=== PATIENT | female | born 1970 | race Caucasian/White ===

== ENCOUNTER 2019-10-14 02:21 | Outpatient (CLI) | payer BC, SELFPAY ==
--- NOTE | 2019-10-14 08:30 | DI.MAMMO_ITS ---
EXAM: MG MAMMO SCREENING CLINICAL HISTORY: screening TECHNIQUE: Bilateral full field digital CC and MLO mammographic images were obtained with 3D tomosyn thesis and utilizing computer aided detection (CAD). COMPARISON: Available for comparison. FINDINGS: Masses/Architectural Distortion: None seen. Microcalcifications: No suspicious pleomorphic-type are seen. Skin Thickening/Nipple Retraction: None. IMPRESSION: 1. No significant interval change with no specific features of malignancy noted. 2. Unless there is more urgent need, screening mammography is recommended, as per [employer] guidelines. ACR BI-RAD Category- 1 Negative Breast Density - Category B - Scattered areas of fibroglandular density A negative radiographic report should not delay biopsy if a dominant or clinically suspicious mass is present. Up to ten percent of cancers are not identified on mammography. A negative report may reinforce clinical impression. Adenosis and dense breasts may obscure an underlying neoplasm. False positive reports average 6 to 10%. Patient will receive a letter notifying them of these results.
== END 2019-10-14 02:41 ==
PROVIDERS: PCP Emergency Medicine; Visit Provider Nurse Practitioner Family
DX: Z12.31 Encounter for screening mammogram for malignant neoplasm of breast (principal)
CPT/HCPCS: 77063; 77067

== ENCOUNTER 2020-09-26 11:26 | Outpatient (REF) | payer BC, SELFPAY ==
--- NOTE | 2020-09-26 11:00 | PAPFT_PTH ---
PATIENT: Regina Hearn LOC: GIN U#:[id number] AGE/SX: 49/F ROOM: RE09/26/[address]: DARIAN Oliveira : 1970 BED: DIS: 09/26/2020 SPEC #: [id number] RECD: 09/26/20 12:46 STATUS: AGUSTINA REQ #: [id number] EDNA: 09/26/20 11:[address]: Chapis Borges DEPT: [facility] Cytology RECD BY: Damari Araujo ENTERED: 09/26/20 12:47 SP TYPE: PAPFT OTHR DR: Yousif Kidd, Tissues: 1 - CX/ENDOCX FOR PAP SMEARS Procedures: PAP THIN PREP/[facility] Screening HPV DNA PROBE Comments: [id number] ([place])
== END 2020-09-26 11:46 ==
LOC: LBN 11:26
PROVIDERS: PCP Emergency Medicine; Visit Provider Nurse Practitioner Family
DX: Z12.4 Encounter for screening for malignant neoplasm of cervix (principal)
CPT/HCPCS: 88142; 87624

== ENCOUNTER 2021-07-06 04:04 | Outpatient (CLI) | payer BC, SELFPAY ==
--- NOTE | 2021-07-06 08:30 | DI.RAD_ITS ---
Exam(s) XR KNEE RT 3V AP,LAT,INES EXAM: XR KNEE RT 3V AP,LAT,INES CLINICAL HISTORY: One year continuous pain, worsening/swelling,m25.561. TECHNIQUE: 2D digital imaging was performed. COMPARISON: No exams were available for comparison FINDINGS: BONES: No acute fracture is present. No bony destructive lesion is seen. JOINTS: The knee is normally aligned. No joint effusion is seen. There is mild periarticular spurring involving all 3 joint compartments. SOFT TISSUE: Normal. IMPRESSION: Mild degenerative changes of the right knee. DATA REPOSITORY: RADIATION DOSE DELIVERED:
== END 2021-07-06 04:24 ==
PROVIDERS: PCP Emergency Medicine; Visit Provider Nurse Practitioner Family
DX: M17.11 Unilateral primary osteoarthritis, right knee (principal)
CPT/HCPCS: 73562

== ENCOUNTER 2021-12-19 00:33 | Outpatient (CLI) | payer BC, SELFPAY ==
--- NOTE | 2021-12-19 08:21 | DI.MAMMO_ITS ---
Exam(s) MAMMO SCREENING EXAM: MAMMO SCREENING CLINICAL HISTORY: screening. TECHNIQUE: Bilateral full field digital CC and MLO mammographic images were obtained with 3D tomosyn thesis and utilizing computer aided detection (CAD). COMPARISON: Prior mammograms were reviewed, the most recent being September 2019. FINDINGS: No CAD designations. There are no new spiculated masses nor malignant appearing microcalcification groups. There is no significant architectural distortion nor skin thickening-retraction. IMPRESSION: No radiographic evidence of malignancy. BI-RADS Category 1 - Negative Breast Density - Category B - Scattered areas of fibroglandular density Breast density Category C or D implies that the patient has dense breast tissue. Dense breast tissue can make it harder to find cancer on a mammogram. Dense breast tissue is also associated with an incr eased risk of breast cancer. This information about the result of the mammogram report was provided to the patient to raise their awareness. Use this report when you speak with the patient about their risks for breast cancer, which includes their family history. At that time, you may recommend additional screening tests (Ultrasoun d or MRI) as these tests may add significant information. A negative radiographic report should not delay biopsy if a dominant or clinically suspicious mass is present. Up to ten percent of cancers are not identified on mammography. A negative report may reinforce clinical impression. Adenosis and dense breasts may obscure an underlying neoplasm. False positive reports average 6 to 10%. Patient will receive a letter notifying them of these results.
== END 2021-12-19 00:53 ==
PROVIDERS: PCP Family Medicine; Visit Provider Nurse Practitioner Family
DX: Z12.31 Encounter for screening mammogram for malignant neoplasm of breast (principal)
CPT/HCPCS: 77063; 77067

== ENCOUNTER → 2022-03-14 17:12 | Outpatient (CLI) | payer BC, SELFPAY ==
--- NOTE | 2022-03-14 14:00 | DI.RAD_ITS ---
Exam(s) XR KNEE RT 3V AP,LAT,INES EXAM: XR KNEE RT 3V AP,LAT,INES CLINICAL HISTORY: right knee pain - M25.569. TECHNIQUE: 2D digital imaging was performed. COMPARISON: CR XR KNEE RT 3V AP,LAT,INES from 07/06/2021 FINDINGS: 3 views There is no evidence of fracture or obvious joint effusion. Minimal degenerative changes. No osseou s lesions. Bone density. IMPRESSION: Minimal degenerative changes. No joint effusion. No fractures evident. DATA REPOSITORY: RADIATION DOSE DELIVERED:
== END ==
PROVIDERS: PCP Nurse Practitioner; Visit Provider Emergency Medicine
DX: M25.561 Pain in right knee (principal)
CPT/HCPCS: 73562

== ENCOUNTER → 2022-04-18 02:15 | Outpatient (CLI) | payer BC, SELFPAY ==
--- NOTE | 2022-04-18 07:57 | DI.MRI_ITS ---
Exam(s) MR LOWER JOINT RT WO EXAM: MR LOWER JOINT RT WO CLINICAL HISTORY: RIGHT KNEE PAIN, INTERNAL DERANGEMENT, M23.91, M25.561. TECHNIQUE: Multiplanar multisequence MRI was performed. COMPARISON: CR XR KNEE RT 3V AP,LAT,INES from 03/14/2022 FINDINGS: BONES: There is no fracture or contusion pattern. JOINTS: Articular cartilage is unremarkable. There is a small joint effusion. TENDONS: Extensor mechanism: Unremarkable. Medial retinaculum: Unremarkable. Lateral retinaculum: Unremarkable. Popliteus: Unremarkable. MUSCLES: Unremarkable. MENISCI: There is a tear of the body and posterior horn of the medial meniscus. There is a small para meniscal cyst. The lateral meniscus is unremarkable. SOFT TISSUES: There is mild edema seen in the prepatellar soft tissues. No focal fluid collection is seen. LIGAMENTS: Anterior Cruciate: Unremarkable. Posterior Cruciate: Unremarkable. Medial Collateral:There is fluid around the medial collateral ligament suggestive of a sprain. Lateral Collateral: Unremarkable. OTHER: IMPRESSION: 1. Tear of the body and posterior horn of the medial meniscus with an associated parameniscal cyst. 2. Findings suggestive of a medial collateral ligament sprain. 3. Small joint effusion. DATA REPOSITORY:
== END ==
PROVIDERS: PCP Nurse Practitioner; Visit Provider Student in an Organized Health Care Education/Training Program
DX: M25.561 Pain in right knee (principal); M23.8X1 Other internal derangements of right knee; M25.461 Effusion, right knee; S83.241A Other tear of medial meniscus, current injury, right knee, initial encounter; S83.411A Sprain of medial collateral ligament of right knee, initial encounter
CPT/HCPCS: 73721

== ENCOUNTER 2022-05-01 03:25 | Outpatient (CLI) | payer BC, SELFPAY ==
[2022-05-01 12:07] LABS: Source Nasal/Nares
[2022-05-01 16:06] LABS: COVID-19 PCR Negative (Negative)
== END 2022-05-01 03:26 | disposition home or self-care (01) ==
LOC: LBO 03:25
PROVIDERS: PCP Nurse Practitioner; Visit Provider Student in an Organized Health Care Education/Training Program
DX: Z20.822 Contact with and (suspected) exposure to COVID-19 (principal); Z01.818 Encounter for other preprocedural examination
CPT/HCPCS: 87635

== ENCOUNTER 2022-05-03 08:55 | Day surgery (SDC) | payer BC, SELFPAY ==
[2022-05-03] VITALS (9 sets, daily range): BP systolic 86–122; BP diastolic 42–78; PULSE 51–67; RESP 12–18; TEMP 36.5–37.1; O2SAT 96–100; BMI 31.8
--- NOTE | 2022-05-03 08:21 | W.ANESPRE ---
General Info Date of Service Date Performed: 05/03/22 Height: 5 ft 7 in Weight: 92.079 kg Body Mass Index (BMI): 31.8 Surgical Procedure: Operation Date: 05/03/22 11:10 Proposed Procedure Side Surgeon p Knee Arthroscopy w/Any Indicated Meniscal, Chondral and Synovial Surgery Right Shahab Chavez MD Meds Allergies and Home Medications Allergies Allergy/AdvReac Type Severity Reaction Status Date / Time hydrocodone AdvReac Mild Nausea Verified 05/03/22 09:09 Home Medication Medication Instructions Recorded calcium carbonate 600 mg calcium 600 mg PO DAILY 07/07/14 (1,500 mg) tablet (Calcium) multivitamin (Daily Multi-Vitamin 1 ea PO DAILY 07/07/14 tablet) omega-3 fatty acids-fish oil 300 1 ea PO DAILY 07/07/14 mg-1,000 mg capsule (Fish Oil) Current Visit Medications: Current Medications Generic Name Dose Route Start Last Admin Trade Name Freq PRN Reason Stop Dose Admin Ringer's Solution 1,000 mls @ 80 mls/hr 05/03/22 06:00 IV 06/01/22 23:59 INFUSION PAULA Cefazolin Sodium/Dextrose 2 gm in 50 mls @ 100 mls/hr 05/03/22 06:00 Ancef Duplex IVPB 05/03/22 18:00 PREOP PAULA IV Miscellaneous Supplies 1 each 05/03/22 06:00 Iv Access IV 06/01/22 23:59 DIRECTED PAULA Naproxen 250 - 500 mg 05/03/22 07:22 Naproxen 500 Mg Tab PO BID PRN PRN Oxycodone HCl 5 - 10 mg 05/03/22 07:22 Oxycodone 5 Mg Tab PO Q4H PRN PRN Sodium Chloride 0 ml 05/03/22 06:00 Normal Saline Flush 10 Ml Syr IV 06/01/22 23:59 PRN PRN Sodium Chloride 0 ml 05/03/22 06:00 Normal Saline 10 Ml Vial IJ 06/01/22 23:59 DIRECTED PRN Sterile Water 0 ml 05/03/22 06:00 Water,Injection,Sterile 10 Ml Vial IJ 06/01/22 23:59 DIRECTED PRN PFSH Active Problems Active Problems: Problem Status Onset Code Tear of medial meniscus of right knee S83.241A Surgical History Surgical History section X 2 Endometrial Ablation (~2007) Ligation of fallopian tube Open Carpal Tunnel release R Tobacco Smoking/Tobacco Use Status: Never Alcohol Alcohol Intake: current Alcohol intake frequency: a few times a week Substance Use Substance use: Never Substance use type: does not use Prental History History 2 Para Hx # Term Pregnancies 2 Multiple births Hx # Pregnancies Ectopic pregnancies AB induced Hx Number of Living Children AB spontaneous Vital Signs and Lab Results Vital Signs Most Recent Vital Signs in EMR: Temp Pulse Resp BP Pulse Ox 37.1 C 67 18 122/78 98 05/03/22 09:11 05/03/22 09:11 05/03/22 09:11 05/03/22 09:11 05/03/22 09:11 Lab Results Blood Type / Crossmatch: No Data to Display Complete Blood Count: No Data to Display Complete Metabolic Panel: No Data to Display Liver Function Panel: No Data to Display Coagulation Panel: No Data to Display Cardiac Panel: No Data to Display Arterial Blood Gas: No Data to Display Venous Blood Gas: No Data to Display Pancreas Panel: No Data to Display Thyroid Panel: No Data to Display Infectious Disease: Coronavirus (COVID-19)(PCR) Negative (Negative) 05/01/22 09:05 Coronavirus 2019 Source Nasal/Nares 05/01/22 09:05 Blood Cultures: No Data to Display Toxicology Panel: No Data to Display Panel: No Data to Display Anesthesia Assessment and Plan Anesthesia History Personal History: No History of Anesthesia Complications Family History: No Family History of Anesthesia Complications Exercise Tolerance Exercise Tolerance: Metabolic Equivalents>4 Pertinent Negatives Pertinent Negatives: No Symptoms of GERD Cardiac & Pulmonary Exam Cardiac Exam: Normal S1/S2 Heart Sounds Pulmonary Exam: Clear Bilateral Breath Sounds Implantable Cardiac Device Does patient have a Pacemaker or an ICD?: No Airway Exam Known Difficult Airway: No Mallampati Class: 2 Mouth Opening: Normal (> 3cm) Thyromental Distance: Greater than 3 cm Neck Range of Motion: Full ROM Neck Circumference: Normal Teeth Condition: Normal Dentition ASA Classification ASA Score: ASA 2 Emergency Case?: No NPO Status NPO Status: NPO Clears >2 hours, Solids >8 hours Status Status: Not Relevant due to Medical History Anesthesia Plan Resuscitation Status: Full Code Anesthesia Technique: General Anesthesia Airway Planned: LMA Monitors Used: Standard Monitors Preoperative Comments:: 51 yo female for right knee scope. Sig PMHx: chronic neck/shoulder pain, never smoker/EtOH. Previous Anes: no airway history
[2022-05-03] MEDS: Lactated Ringers 1,000 ML 80 ML IV (09:34)
[2022-05-03] MEDS: ceFAZolin 2 GM/50 ML BAG IVPB (11:17)
[2022-05-03] MEDS: MORPHine 4 MG/ML SYR (12:00)
[2022-05-03] MEDS: EPINEPHrine 30 MG/30 ML VIAL (12:00)
[2022-05-03] MEDS: Bupivacaine 0.5% Pres-Free W/EPI 10 ML VIAL (12:18)
--- NOTE | 2022-05-03 12:31 | W.PM.DSUDISC ---
Discharge Plan Disposition Patient Disposition: HOME Condition: Stable Discharge Details Reason For Visit: Right knee surgery Attending Provider: hSahab Chavez Primary Care Provider: Erika Flannery Home Meds and New Rx's Prescriptions: New aspirin 81 mg tablet,delayed release (DR/EC) 81 mg PO DAILY 14 Days Qty: 14 0RF naproxen 250 mg tablet 250 - 500 mg PO BID PRNQty: 40 0RF Rx Instructions: take with a meal tramadol 50 mg tablet 50 mg PO Q8H PRN (Reason: severe pain) Qty: 9 0RF Continued multivitamin [Daily Multi-Vitamin] 1 EACH tablet 1 ea PO DAILY calcium carbonate [Calcium 600] 600 MG tablet 600 mg PO DAILY omega-3 fatty acids-fish oil [Fish Oil] 1 EACH capsule 1 ea PO DAILY Discontinued ibuprofen 800 MG tablet 800 mg PO PRN PRN Discharge Instructions Additional Instructions: Surgery: Right knee arthroscopy with partial medial meniscectomy and synovectomy Activity: Weightbearing as tolerated. Advance range of motion as comfort allows. No knee brace or crutches needed. Recommend avoiding sports, pivoting, and squatting for about 6 weeks. A physical therapy prescription will be sent electronically to start in 2 to 3 weeks. Prescriptions: Aspirin 81 mg take 1 daily to prevent a blood clot for 14 days Naproxen 250 mg take 1-2 every 12 hours with a meal as needed for moderate pain Tramadol 50 mg take 1 every 6 hours as needed for severe pain You may use [id number] Tylenol (acetaminophen) as needed for mild pain. These pain medications may be taken all at once or in different combinations as needed. Also, recommend Colace (docusate) as a stool softener as surgery and pain medicine cause constipation. You may try [id number] diphenhydramine (Benadryl) 25-50 mg nightly as a sleep aid Dressings: Leave dressing in place for 3 days. May then remove and leave open to air or cover incisions with Band-Aids. May shower after 5 days. Follow-up: 10-[address] Chavez Let us know right away if you develop any redness, drainage, fevers, chest pain, or trouble breathing. Do not drink alcohol or drive for at least 24 hours after anesthesia. Please call the office during business hours with any questions or concerns. Discharge Orders Discharge Orders: Discharge Order (Routine); Ordered 05/03/22 Ordered By: Shahab Chavez DS: Diagnosis Discharge Diagnosis (1) Tear of medial meniscus of right knee: Status: Acute
--- NOTE | 2022-05-03 12:37 | ROE_ITS ---
Operative Note Operative Note DATE OF PROCEDURE: 05/03/22 PRE-OP DIAGNOSIS: Right knee 1. Medial meniscus tear POST-OP DIAGNOSIS: other Right knee 1. Medial meniscus tear 2. Synovitis PROCEDURE: Right knee 1. Partial medial meniscectomy, CPT #76661 2. Greater than 2 compartment synovectomy, CPT #55772: Anteromedial, anterolateral, and patellofemoral SURGEON: Shahab Chavez ELECTRICAL SIGN WIRER: None None ANESTHESIA TYPE: Local By Surgeon and General LMA/ETT Refer to Anesthesia Record ESTIMATED BLOOD LOSS: 5 PATHOLOGY: none sent TOURNIQUET TIME: 0 Patient was transported to: PACU Patient's condition: stable Indications: Please see complete medical record for details. Findings: Exam under anesthesia: Full range of motion, no instability Arthroscopic findings: Moderate patellofemoral, anteromedial, anterolateral synovitis. Large posterior horn degenerative type medial meniscus tear with slight extension horizontally into the meniscal root and meniscal body. Stable root attachment. Stable superior and inferior leaflets although significantly divided in the posterior horn through the red?white zone. Intact ACL. Intact lateral meniscus. Largely intact articular cartilage. Procedure Description: In the operating room, genral anesthesia was induced. The patient was positioned supine on the operating room table. All bony prominences were well- padded. Preoperative antibiotics were administered. The knee was prepped and draped in the usual sterile fashion. The correct patient, procedure, and side of the procedure were all verified prior to incision. Exam under anesthesia was performed. 10 cc of 0.5% bupivacaine containing epine phrine was infiltrated about the planned anteromedial and anterolateral knee arthroscopy portals. The portals were established and a complete diagnostic arthroscopy was performed with relevant findings detailed above. The mechanical shaver was used to remove abundant inflamed synovium from the anteromedial, anterolateral, and patellofemoral compartments. The lateral meniscal root had slight fraying which was lightly debrided with mechanical shaver as well. Using a combination of hand instruments including meniscal biters and a power shaver and working through the anteromedial and anterolateral compartments the medial meniscus was debrided of all torn tissue to a stable margin. Care was taken to preserve as much meniscus tissue was possible without leaving too much superior and inferior leaflets. The meniscal remnant was probed and found to have a stable margin, stable root, and no other tears. Under direct arthroscopic visualization an 18-gauge needle was passed into the knee from superolateral into the suprapatellar pouch. The knee was copiously irrigated with arthroscopic fluid until there was a clear effluent before being drained of all fluid. The anteromedial and anterolateral portals were closed in 3-0 Monocryl in a buried interrupted fashion. 20 cc of 0.5% bupivacaine with epinephrine containing 4 mg of morphine was infiltrated into the knee through t he previously placed needle. Mastisol, Steri-Strips, and 4 x 4 gauze were applied over the incisions followed by sterile soft roll. The knee was then wrapped gently with an RASHARD comressive bandage. The patient awoke from anesthesia without complication and was transferred to the recovery room in a stable condition.
[2022-05-03] MEDS: HYDROmorphone 2 MG/ML VIAL IVP ×2 (12:40→13:10)
[2022-05-03] MEDS: Normal Saline 10 ML VIAL IJ (12:45)
--- NOTE | 2022-05-03 12:56 | W.ANESPOSTOP ---
Postoperative Evaluation Date, Time and Location Date Performed: 05/03/22 Time Performed: 12:56 Patient Location: PACU Vital Signs Most Recent Imported Vital Signs: Most Recent Vital Signs Temp Pulse Resp BP Pulse Ox 36.5 C 52 L 12 100/58 L 96 05/03/22 12:45 05/03/22 12:45 05/03/22 12:45 05/03/22 12:45 05/03/22 12:45 Pain Score Most Recent Pain Score: Most Recent Pain Score Pain Level 8 05/03/22 12:45 Assessment Mental Status: Awake (Alert & Oriented to Patient Baseline) Airway and Respiratory Function: Patent airway with normal (patient baseline) respiratory exam Cardiovascular Function: Hemodynamically Stable Hydration Status: Adequately Hydrated Nausea & Vomiting: No Nausea or Vomiting Pain: Pain is Moderate or Severe Postoperative Pain Management: Pain being addressed with medication Peripheral Nerve Block: Patient did not receive a nerve block
== END 2022-05-03 14:25 | disposition home or self-care (01) ==
PROVIDERS: PCP Nurse Practitioner; Visit Provider Student in an Organized Health Care Education/Training Program
PROC: (CPT 29870; principal; 2022-05-03 11:00)
DX: S83.241A Other tear of medial meniscus, current injury, right knee, initial encounter (principal); M65.861 Other synovitis and tenosynovitis, right lower leg; X58.XXXA Exposure to other specified factors, initial encounter
CPT/HCPCS: 29876; 29881; J0131; J0690; J1100; J1885; J2270; J2405; J2704

== ENCOUNTER 2023-06-07 07:59 | Emergency (ER) | payer BC, SELFPAY ==
[2023-06-07 08:02] VITALS: BP 140/80; PULSE 70; RESP 16; TEMP 36.4; O2SAT 97
--- NOTE | 2023-06-07 08:30 | ED.GENADUL_ITS ---
Discharge Plan Discharge Details Chief Complaint: Vascular Primary Care Provider: Teena Flores ED Provider: Damian Srivastava Home Meds and New Rx's Prescriptions: No Action bisacodyl [Dulcolax (bisacodyl)] 5 mg tablet,delayed release (DR/EC) 5 mg PO ONCE Qty: 4 0RF Rx Instructions: Take per colonoscopy instructions provided by ordering providers office polyethylene glycol 3350 17 gram/dose powder 17 g PO ONCE Qty: 238 0RF Rx Instructions: Take per colonoscopy instructions provided by ordering providers office multivitamin [Daily Multi-Vitamin] 1 EACH tablet 1 ea PO DAILY calcium carbonate [Calcium 600] 600 MG tablet 600 mg PO DAILY omega-3 fatty acids-fish oil [Fish Oil] 1 EACH capsule 1 ea PO DAILY naproxen 250 mg tablet 250 - 500 mg PO BID PRNQty: 40 0RF Rx Instructions: take with a meal Medical Decision Making 52-year-old lady with known varicose veins bilateral lower extremities. Some of the varicose veins are very superficial on bilateral ankles. She bled from 1 on the right ankle this morning bleeding resolved with pressure. I have recommended that she follow-up with a varicose vein specialist to see if they can offer treatment to avoid this from happening again. HPI General Date/Time Provider Initiated Documentation: 06/07/23 08:10 . HPI Narrative: 52-year-old woman presents to the emergency room for evaluation of laying back of laying on the right ankle. She states she was in the shower and unfortunately nicked her varicose vein and it started bleeding. After some time she put pressure on the vein that was bleeding and called her who put a dressing on. They arrived to the emergency department with an intact dressing. Not on blood thinners. No dizziness. No lightheadedness. Related Data Home Medications Medication Instructions Recorded Confirmed calcium carbonate 600 mg calcium 600 mg PO DAILY 07/07/14 06/07/23 (1,500 mg) tablet (Calcium) multivitamin (Daily Multi-Vitamin 1 ea PO DAILY 07/07/14 06/07/23 tablet) omega-3 fatty acids-fish oil 300 1 ea PO DAILY 07/07/14 06/07/23 mg-1,000 mg capsule (Fish Oil) naproxen 250 mg tablet 250 - 500 mg PO BID PRN #40 tabs 05/03/22 06/07/23 bisacodyl 5 mg tablet,delayed 5 mg PO ONCE #4 tabs 05/29/23 06/07/23 release (Dulcolax (bisacodyl)) polyethylene glycol 3350 17 17 g PO ONCE #238 grams 05/29/23 06/07/23 gram/dose oral powder Previous Rx's Medication Instructions Recorded naproxen 250 mg tablet 250 - 500 mg PO BID PRN #40 tabs 05/03/22 bisacodyl 5 mg tablet,delayed 5 mg PO ONCE #4 tabs 05/29/23 release (Dulcolax (bisacodyl)) polyethylene glycol 3350 17 17 g PO ONCE #238 grams 05/29/23 gram/dose oral powder Allergies Allergy/AdvReac Type Severity Reaction Status Date / Time hydrocodone AdvReac Mild Nausea Verified 06/07/23 08:07 General Stated Complaint: Vascular LUIS: 3 Review of Systems Narrative: 10 point review of system is negative unless otherwise specified in the HPI [facility] Medical History Perimenopausal atrophic vaginitis WALKER (stress urinary incontinence, female) Surgical History section X 2 Endometrial Ablation (~2007) Ligation of fallopian tube Open Carpal Tunnel release R Tear of medial meniscus of right knee S/P a knee arthroscopy with partial medial meniscectomy: 05/03/2022 Family History Mother No problems noted. Father Diabetes Grandmother No problems noted. Maternal Aunt Breast cancer maternal Social History Smoking/Tobacco Use Status: Never Smoking risk assessment performed?: Yes Alcohol Intake: current Alcohol Intake frequency: a few times a week Alcohol type: hard liquor Drug use: Never Substance use type: does not use Housing: house Current gender identity: female Do you feel safe at home: Yes Do you feel safe in your relationship?: Yes Female Reproductive History Menstrual control method: permanent sterilization Menopause type: natural History History 2 Para Hx # Term Pregnancies 2 Multiple births Hx # Pregnancies Ectopic pregnancies AB induced Hx Number of Living Children AB spontaneous Exam Narrative Exam Narrative: General: A,A Ox3, Calm, no apparent distress, well developed, pleasant and cooperative Head Size/Shape: normocephalic, atraumatic Eyes Pupils: PERRLA Extraocular Mobility: intact and symmetrical Conjunctiva: non-injected, anicteric, no discharge Ears, Nose, Throat Nares: patent bilaterally Oral Cavity: moist Respiratory Respiratory Effort: no dyspnea Cardiovascular Normal cap refill Pulse Quality: +2 equal bilaterally, location(s) pedal Musculoskeletal System Joints, Bones, and Muscles: no deformities Extremities: warm and well-perfused, no cyanosis, capillary refill <2 seconds Skin Skin Inspection: Right ankle medial aspect clotted varicose vein Neurological Motor: normal tone, normal strength, moving all extremities equally Psychiatric: good insight, good judgement, normal mood and affect Course Vital Signs Vital signs: Vital Signs Temperature 36.4 C L 06/07/23 08:02 Pulse 70 06/07/23 08:02 Respiratory Rate 16 06/07/23 08:02 Blood Pressure 140/80 06/07/23 08:02 Pulse Oximetry 97 06/07/23 08:02 Temperature 36.4 C L 06/07/23 08:02 Temperature Source Tympanic 06/07/23 08:02 Pulse 70 06/07/23 08:02 Respiratory Rate 16 06/07/23 08:02 Respiratory Effort Normal, Non-Labored 06/07/23 08:08 Blood Pressure 140/80 06/07/23 08:02 Blood Pressure Position Sitting 06/07/23 08:02 Pulse Oximetry 97 06/07/23 08:02 Oxygen Delivery Method Room Air 06/07/23 08:02 Oxygen Flow Rate 0 06/07/23 08:02 Pain Level 0 06/07/23 08:02 PAWSS Have you Been Recently Intoxicated or Drunk Within the Last 30 days?: No Have you Ever Experienced Previous Episodes of Alcohol Withdrawal?: No Have you ever Experienced Withdrawal Seizures?: No Have you ever Experienced Delirium Tremens(DT)s?: No Have you ever undergone Alcohol Rehabilitation Treatment (i.e, inpt ot outpatient treatment programs)?: No Have you ever Experienced Blackouts?: No Have you ever Combined Alcohol with other Downers within the last 90 days?: No Have you ever Combined Alcohol with any other Substance of Abuse during the last 90 days?: No Positive Blood Alcohol level on Presentation? [PCS.BAL]: No Evidence of Increased Autonomic Activity (i.e. HR>120, tremor, sweating, agitation, nausea)?: No Result: 0
== END 2023-06-07 08:45 | disposition home or self-care (01) ==
PROVIDERS: Emergency Provider Emergency Medicine; PCP Nurse Practitioner Family
DX: I83.93 Asymptomatic varicose veins of bilateral lower extremities (principal)
CPT/HCPCS: 99281; 99282

== ENCOUNTER 2023-06-09 10:38 | Day surgery (SDC) | payer BC, SELFPAY ==
--- NOTE | 2023-06-08 14:21 | W.PM.DSUDISC ---
Date of service: 06/09/23 Time of Service: 12:28 Discharge Plan Disposition Patient Disposition: Home Condition: Good Discharge Details Reason For Visit: Colonoscopy Attending Provider: Sammy Ceron Primary Care Provider: Teena Flores Home Meds and New Rx's Prescriptions: Continued multivitamin [Daily Multi-Vitamin] 1 EACH tablet 1 ea PO DAILY calcium carbonate [Calcium 600] 600 MG tablet 600 mg PO DAILY omega-3 fatty acids-fish oil [Fish Oil] 1 EACH capsule 1 ea PO DAILY naproxen 250 mg tablet 250 - 500 mg PO BID PRNQty: 40 0RF Rx Instructions: take with a meal Discontinued bisacodyl [Dulcolax (bisacodyl)] 5 mg tablet,delayed release (DR/EC) 5 mg PO ONCE Qty: 4 0RF Rx Instructions: Take per colonoscopy instructions provided by ordering providers office polyethylene glycol 3350 17 gram/dose powder 17 g PO ONCE Qty: 238 0RF Rx Instructions: Take per colonoscopy instructions provided by ordering providers office Discharge Instructions Additional Instructions: Regina, we were able to complete your colonoscopy today without any difficulty. The quality of your prep was excellent. We had great visualization. I did not see any polyps or anything worrisome. I recommend that you consider another screening colonoscopy in 10 years 1. If tolerated, consume a soft, low fiber diet for 1-2 days. 2. Do not drive, drink alcohol, operate machinery, make critical decisions, or do activities that require coordination or balance for 24 hours. 3. Because air was put into your colon during the procedure, expelling air from your rectum (passing gas or farting) is normal. 4. You may not have a bowel movement for 1-3 days because of the colonoscopy prep. This is normal. 5. Go directly to the emergency room if you notice any of the following: Develop chills (warm to touch), or if you have a thermometer and your temperature is above 101 Difficulty breathing or difficultly swallowing Persistent vomiting Severe abdominal pain, other than gas cramps Severe chest pain Black, tarry stools Any bleeding ? exceeding one tablespoon 6. Call your physician if the site where your intravenous was started becomes red, swollen, painful, and warm to touch. 7. Your physician has reviewed your pre-procedure medications. Please continue to take those medications as previously ordered. You will be given specific information/education regarding any changes to your medications before leaving. Activity:: Activity as Tolerated Diet:: As Tolerated Discharge Orders Discharge Orders: Discharge Order (Routine); Ordered 06/08/23 Ordered By: Sammy Ceron DS: Diagnosis Discharge Diagnosis (1) Screen for colon cancer: Status: Acute Asessment and Plan: Negative screening colonoscopy
--- NOTE | 2023-06-08 14:23 | COLE_ITS ---
Date of service: 06/09/23 Time of Service: 12:30 Colonoscopy Report Date of procedure: 06/09/23 Pre-op diagnosis general: Screening colonoscopy Post-op diagnosis procedure note: other (Negative screening colonoscopy) Procedure: Colonoscopy Surgeon: Sammy Ceron Anesthesia Type: General:No Airway Estimated blood loss (mL): 0 Pathology: none sent Complications: None Disposition: same day Indications: Regina is a52 years old and she needs her next screening colonoscopy Prep: Miralax/Dulcolax Procedure Start Time: 12:04 Procedure End Time: 12:22 Retraction Time: 11 Findings: Negative screening colonoscopy Procedure Description: After the induction of monitored anesthetic care, and with the patient in left lateral decubitus position, I began by performing an external anorectal exam.? Perineum and skin were normal, as was the anal verge.? There was no evidence of external hemorrhoids.? Next, I performed a digital rectal exam.? I did not appreciate any abnormal findings.? Next, I advanced a colonoscope into the recta l vault.? I performed retroflexion.? This was normal.? Using insufflation, I then advanced the colonoscope beyond the rectal folds and into the sigmoid colon before advancing towards the cecum.? The quality of the prep was asked.? The scope was noted to be in the cecum by identification of the ileocecal valve and appendiceal orifice.? I then began withdrawing the colonoscope using repeated irrigation as necessary for full evaluation of the colonic mucosa. ?Once the scope was withdrawn to the level of the rectum, great care was taken to examine portions of the rectal folds. I did not see any signs of polyps or tumors anywhere along the large intestine. finally, the scope was withdrawn and the patient was brought to the same-day surgery recovery unit as the anesthetic wore off. ?The findings and instructions were shared with the patient prior to discharge.
[2023-06-09 10:59] VITALS: BP 134/79; PULSE 59; RESP 17; TEMP 36.8; O2SAT 98
[2023-06-09] MEDS: Lactated Ringers 1,000 ML 80 ML IV (11:23)
--- NOTE | 2023-06-09 11:36 | W.ANESPRE ---
General Info Date of Service Date Performed: 06/09/23 Height: 5 ft 7 in Weight: 91.9 kg Body Mass Index (BMI): 31.7 Surgical Procedure: Operation Date: 06/09/23 12:50 Proposed Procedure Side Surgeon p Shayy Ceron MD Meds Allergies and Home Medications Allergies Allergy/AdvReac Type Severity Reaction Status Date / Time hydrocodone AdvReac Mild Nausea Verified 06/09/23 11:11 Home Medication Medication Instructions Recorded calcium carbonate 600 mg calcium 600 mg PO DAILY 07/07/14 (1,500 mg) tablet (Calcium) multivitamin (Daily Multi-Vitamin 1 ea PO DAILY 07/07/14 tablet) omega-3 fatty acids-fish oil 300 1 ea PO DAILY 07/07/14 mg-1,000 mg capsule (Fish Oil) naproxen 250 mg tablet 250 - 500 mg PO BID PRN #40 tabs 05/03/22 Current Visit Medications: Current Medications Generic Name Dose Route Start Last Admin Trade Name Freq PRN Reason Stop Dose Admin Hyoscyamine Sulfate 0.125 mg 06/08/23 14:24 Hyoscyamine 0.125 Mg Sl/Oral/Chew SL 07/08/23 14:23 DIRECTED PRN Ringer's Solution 1,000 mls @ 80 mls/hr 06/09/23 06:00 06/09/23 11:23 IV 07/06/23 23:59 80 mls/hr INFUSION PAULA Administration IV Miscellaneous Supplies 1 each 06/09/23 06:00 Iv Access IV 07/06/23 23:59 DIRECTED PAULA Ondansetron HCl 4 mg 06/08/23 14:24 Ondansetron 4 Mg/2 Ml Vial IVP 07/08/23 14:23 Q4H PRN PRN Nausea / Vomiting Sodium Chloride 0 ml 06/09/23 06:00 Normal Saline Flush 10 Ml Syr IV 07/06/23 23:59 PRN PRN Sodium Chloride 0 ml 06/09/23 06:00 Normal Saline 10 Ml Vial IJ 07/06/23 23:59 DIRECTED PRN Sterile Water 0 ml 06/09/23 06:00 Water,Injection,Sterile 10 Ml Vial IJ 07/06/23 23:59 DIRECTED PRN PFSH Active Problems Active Problems: Problem Status Onset Code Screen for colon cancer Z12.11 Varicose vein of leg I83.90 Medical History Medical History Perimenopausal atrophic vaginitis WALKER (stress urinary incontinence, female) Surgical History Surgical History section X 2 Endometrial Ablation (~2007) Ligation of fallopian tube Open Carpal Tunnel release R Tear of medial meniscus of right knee S/P a knee arthroscopy with partial medial meniscectomy: 05/03/2022 Tobacco Smoking/Tobacco Use Status: Never Alcohol Alcohol Intake: current Alcohol intake frequency: a few times a week Alcohol type: hard liquor Substance Use Substance use: Never Substance use type: does not use Prental History History 2 Para Hx # Term Pregnancies 2 Multiple births Hx # Pregnancies Ectopic pregnancies AB induced Hx Number of Living Children AB spontaneous Vital Signs and Lab Results Vital Signs Most Recent Vital Signs in EMR: Most Recent Vital Signs Temp Pulse Resp BP Pulse Ox 36.8 C 59 L 17 134/79 98 06/09/23 10:59 06/09/23 10:59 06/09/23 10:59 06/09/23 10:59 06/09/23 10:59 Lab Results Blood Type / Crossmatch: No Data to Display Complete Blood Count: No Data to Display Complete Metabolic Panel: No Data to Display Liver Function Panel: No Data to Display Coagulation Panel: No Data to Display Cardiac Panel: No Data to Display Arterial Blood Gas: No Data to Display Venous Blood Gas: No Data to Display Pancreas Panel: No Data to Display Thyroid Panel: No Data to Display Infectious Disease: No Data to Display Blood Cultures: No Data to Display Toxicology Panel: No Data to Display Panel: No Data to Display Anesthesia Assessment and Plan Anesthesia History Personal History: No History of Anesthesia Complications Family History: No Family History of Anesthesia Complications Exercise Tolerance Exercise Tolerance: Metabolic Equivalents>4 Pertinent Negatives Pertinent Negatives: No Symptoms of GERD Cardiac & Pulmonary Exam Cardiac Exam: Normal S1/S2 Heart Sounds Pulmonary Exam: Clear Bilateral Breath Sounds Implantable Cardiac Device Does patient have a Pacemaker or an ICD?: No Airway Exam Known Difficult Airway: No Mallampati Class: 2 Mouth Opening: Normal (> 3cm) Thyromental Distance: Greater than 3 cm Neck Range of Motion: Full ROM Neck Circumference: Normal Teeth Condition: Normal Dentition ASA Classification ASA Score: ASA 2 Emergency Case?: No NPO Status NPO Status: NPO Clears >2 hours, Solids >8 hours Status Status: Not Relevant due to Medical History Anesthesia Plan Resuscitation Status: Full Code Anesthesia Technique: General Anesthesia Airway Planned: Natural Airway Monitors Used: Standard Monitors
[2023-06-09 11:38] VITALS: BMI 31.7
[2023-06-09 12:24] VITALS: BP 121/71; PULSE 66; RESP 18; TEMP 36.5; O2SAT 97
[2023-06-09 13:00] VITALS: BP 120/78; PULSE 76; RESP 18; TEMP 36.5; O2SAT 99
--- NOTE | 2023-06-09 13:19 | W.ANESPOSTOP ---
Postoperative Evaluation Date, Time and Location Date Performed: 06/09/23 Time Performed: 13:19 Patient Location: Day Surgery Unit Vital Signs Most Recent Imported Vital Signs: Most Recent Vital Signs Temp Pulse Resp BP Pulse Ox 36.5 C 76 18 120/78 99 06/09/23 13:00 06/09/23 13:00 06/09/23 13:00 06/09/23 13:00 06/09/23 13:00 Pain Score Most Recent Pain Score: Most Recent Pain Score Pain Level 0 06/09/23 13:00 Assessment Mental Status: Awake (Alert & Oriented to Patient Baseline) Airway and Respiratory Function: Patent airway with normal (patient baseline) respiratory exam Cardiovascular Function: Hemodynamically Stable Hydration Status: Adequately Hydrated Nausea & Vomiting: No Nausea or Vomiting Pain: Pt. Denies Any Pain Peripheral Nerve Block: Patient did not receive a nerve block
== END 2023-06-09 13:35 | disposition home or self-care (01) ==
PROVIDERS: PCP Nurse Practitioner Family; Visit Provider Surgery
PROC: 0DJD8ZZ Inspection of Lower Intestinal Tract, Via Natural or Artificial Opening Endoscopic (ICD-10-PCS; CPT 45378; principal; 2023-06-09 12:45)
DX: Z12.11 Encounter for screening for malignant neoplasm of colon (principal)
CPT/HCPCS: 45378

== ENCOUNTER 2023-11-12 09:48 | Outpatient (CLI) | payer BC, SELFPAY ==
--- NOTE | 2023-11-12 09:45 | DI.RAD_ITS ---
Exam(s) XR KNEE RT 3V AP,LAT,INES EXAM: XR KNEE RT 3V AP,LAT,INES CLINICAL HISTORY: RIGHT KNEE PAIN. TECHNIQUE: 2D digital imaging was performed. COMPARISON: CR XR KNEE RT 3V AP,LAT,INES from 03/14/2022 FINDINGS: 3 views No evidence of acute fracture nor obvious joint effusion. There is mild narrowing of the medial comp artment of the knee noted, slightly more so than on the February 2022 images. There is also marginal os teophyte off the medial compartment. Lateral compartment exhibits normal height. Patellofemoral com partment appears unremarkable. Bone density normal. No osseous lesions. However, on the lateral vi ew there is small bony density anteriorly, not seen previously and may represent a loose intra-articu lar body measuring 5 x 4 mm. There does not appear to be an osteochondral defect in the femoral cond yles. IMPRESSION: Increasing degenerative change in the medial compartment. Possible loose intra-articular body. No o bvious osteochondral defects. No obvious joint effusion DATA REPOSITORY: RADIATION DOSE DELIVERED:
== END 2023-11-12 09:49 | disposition home or self-care (01) ==
LOC: DIORS 09:48
PROVIDERS: PCP Nurse Practitioner Family; Visit Provider Student in an Organized Health Care Education/Training Program
DX: M17.11 Unilateral primary osteoarthritis, right knee (principal)
CPT/HCPCS: 73562

== ENCOUNTER → 2024-01-05 01:01 | Outpatient (CLI) | payer BC, SELFPAY ==
--- NOTE | 2024-01-05 07:45 | DI.MAMMO_ITS ---
Exam(s) MAMMO SCREENING EXAM: MAMMO SCREENING CLINICAL HISTORY: screening TECHNIQUE: Mammograms were interpreted according to the usual protocol including computer analysis w [employer] CAD system, tomosynthesis and C-view imaging. COMPARISON: 2014 through 2021 FINDINGS: The breasts are composed of scattered fibroglandular densities, Breast Density category B. No suspicious masses or suspicious microcalcifications are seen. No skin thickening or abnormal axillary lymph nodes are seen. There has been no significant change from prior exams. IMPRESSION: BI-RADS Category 1, Negative mammogram Yearly screening mammography is recommended. Breast Density - Category B, scattered fibroglandular densities. A negative radiographic report should not delay biopsy if a dominant or clinically suspicious mass is present. Up to ten percent of cancers are not identified on mammography. A negative report may reinforce clinical impression. Adenosis and dense breasts may obscure an underlying neoplasm. False positive reports average 6 to 10%. Patient will receive a letter notifying them of these results.
== END ==
PROVIDERS: PCP Nurse Practitioner Family; Visit Provider Obstetrics & Gynecology
DX: Z12.31 Encounter for screening mammogram for malignant neoplasm of breast (principal)
CPT/HCPCS: 77063; 77067

== ENCOUNTER 2024-03-25 15:38 | Outpatient (CLI) | payer BC, SELFPAY ==
--- NOTE | 2024-03-25 09:45 | DI.RAD_ITS ---
Exam(s) XR KNEE LT 3V AP,LAT,INES EXAM: XR KNEE LT 3V AP,LAT,INES CLINICAL HISTORY: LEFT KNEE PAIN. TECHNIQUE: 2D digital imaging was performed. Three views. COMPARISON: No exams were available for comparison FINDINGS: BONES: No acute fracture is present. No bony destructive lesion is seen. JOINTS: The knee is normally aligned. No joint effusion is seen. The joint spaces are maintained. No significant degenerative changes. SOFT TISSUE: Venous varicosities in the medial soft tissues. IMPRESSION: No acute abnormality. DATA REPOSITORY: RADIATION DOSE DELIVERED:
== END 2024-03-25 15:39 | disposition home or self-care (01) ==
LOC: DIORS 15:38
PROVIDERS: PCP Nurse Practitioner Family; Visit Provider Physician Assistant
DX: M25.562 Pain in left knee (principal)
CPT/HCPCS: 73562

== ENCOUNTER → 2024-04-09 01:01 | Outpatient (CLI) | payer BC, SELFPAY ==
--- NOTE | 2024-04-09 06:45 | DI.MRI_ITS ---
Exam(s) MR LOWER JOINT LT WO EXAM: MR LOWER JOINT LT WO CLINICAL HISTORY: PAIN,TEAR MEDIAL MENISCUS LT KNEE,S83.242A. TECHNIQUE: Multiplanar multisequence MRI was performed. COMPARISON: CR XR KNEE LT 3V AP,LAT,INES from 03/25/2024 FINDINGS: BONES: There is no fracture or contusion pattern. There is nonspecific subchondral edema in the proxi mal tibia. JOINTS: Articular cartilage is unremarkable. Small joint effusion. TENDONS: Extensor mechanism: Unremarkable. Medial retinaculum: Unremarkable. Lateral retinaculum: Unremarkable. Popliteus: Unremarkable. MUSCLES: Unremarkable. MENISCI: There is a tear of the posterior horn of the medial meniscus. The lateral meniscus is unrem arkable. SOFT TISSUES: Unremarkable. LIGAMENTS: Anterior Cruciate: Unremarkable. Posterior Cruciate: Unremarkable. Medial Collateral:Unremarkable. Lateral Collateral: Unremarkable. OTHER: IMPRESSION: 1. Tear of the posterior horn of the medial meniscus. 2. No evidence of a ligament tear. 3. Small joint effusion. DATA REPOSITORY:
== END ==
PROVIDERS: PCP Nurse Practitioner Family; Visit Provider Student in an Organized Health Care Education/Training Program
DX: S83.242A Other tear of medial meniscus, current injury, left knee, initial encounter (principal); X58.XXXA Exposure to other specified factors, initial encounter
CPT/HCPCS: 73721

== ENCOUNTER 2024-05-07 08:56 | Day surgery (SDC) | payer BC, SELFPAY ==
[2024-05-07] VITALS (34 sets, daily range): BP systolic 84–125; BP diastolic 40–79; PULSE 59–75; RESP 12–28; TEMP 36.1–36.7; O2SAT 91–100; BMI 32.7
--- NOTE | 2024-05-07 07:10 | PDOC.DSDIS_ITS ---
Date of service: 05/07/24 Time of Service: 13:00 Discharge Plan Disposition Patient Disposition: Home Condition: Stable Discharge Details Attending Provider: Shahab Chavez Primary Care Provider: Teena Flores Home Meds and New Rx's Prescriptions: New aspirin 81 mg capsule 81 mg PO DAILY 14 Days Qty: 14 0RF naproxen 250 mg tablet 250 - 500 mg PO BID PRN (Reason: moderate pain and swelling) Qty: 40 0RF tramadol 50 mg tablet 50 mg PO Q8H PRN (Reason: severe pain) Qty: 9 0RF Continued estradiol 0.01 % (0.1 mg/gram) cream 0.25 g vaginal DAILY Qty: 42.5 4RF Rx Instructions: Use Nightly x 2wks. Then decrease use to 2-3x/week. Massage a pea-sized amount around the vaginal opening. multivitamin [Daily Multi-Vitamin] 1 EACH tablet 1 ea PO DAILY calcium carbonate [Calcium 600] 600 MG tablet 600 mg PO DAILY omega-3 fatty acids-fish oil [Fish Oil] 1 EACH capsule 1 ea PO DAILY Discontinued naproxen 250 mg tablet 250 - 500 mg PO BID PRNQty: 40 0RF Rx Instructions: take with a meal Discharge Instructions Additional Instructions: Surgery: Left knee arthroscopy with partial medial meniscectomy and synovectomy Activity: Weightbearing as tolerated. Advance range of motion as comfort allows. No knee brace or crutches needed as soon as comfortable. Recommend avoiding sports, pivoting, and squatting for 6-8 weeks. A physical therapy pres cription will be sent electronically to start in 2 to 3 weeks. Prescriptions: Aspirin 81 mg take 1 daily to prevent a blood clot for 14 days, starting tomorrow morning Naproxen 250 mg take 1-2 every 12 hours with a meal as needed for moderate pain Oxycodone 5 mg take 1-2 every 4-6 hours as needed for severe pain You may use [id number] Tylenol (acetaminophen) as needed for mild pain. These pain medications may be taken all at once or in different combinations as needed. Also, recommend Colace (docusate) as a stool softener as surgery and pain medicine cause constipation. You may try [id number] diphenhydramine (Benadryl) 25-50 mg nightly as a sleep aid Dressings: Leave dressing in place for 3 days. May then remove and leave open to air or cover incisions with Band-Aids. Leave the sticky Steri-Strips in place until they fall off or remove them after you shower. May shower after 5 days. Follow-up: 10-[address] Chavez You may take off the leg compression stockings this evening at home. You may also leave them on a few days longer if you have a history of leg swelling or edema. Let us know right away if you develop any redness, drainage, fevers, chest pain, or trouble breathing. Do not drink alcohol or drive for at least 24 hours after anesthesia. Please call the office during business hours with any questions or concerns. Stand Alone Forms: Anesthesia Discharge Inst., Anne Jernigan (DSU) Referrals: Shahab Chavez MD [ [facility] STAFF PHYSICIAN] - 05/18/24 11:15 am Discharge Orders Discharge Orders: Discharge Order (Routine); Ordered 05/07/24 Ordered By: Shivani Birmingham Discharge Data Discharge Date/Time-TO BE ENTERED AT DEPARTURE: 05/07/24 15:42 DS: Diagnosis Discharge Diagnosis (1) Tear of medial meniscus of left knee: Status: Acute
--- NOTE | 2024-05-07 07:27 | W.PM.OP ---
Date of service: 05/07/24 Time of Service: 13:00 Operative Note Operative Note DATE OF PROCEDURE: 05/07/24 PRE-OP DIAGNOSIS: Left knee 1. Medial meniscus tear 2. Synovitis POST-OP DIAGNOSIS: same PROCEDURE: Left knee 1. Partial medial meniscectomy, CPT #76020 2. Greater than 2 compartment synovectomy, CPT #63299: Suprapatellar, patellofemoral, and anterior intercondylar SURGEON: Shahab Chavez CONSULTATIVE SALES ASSOCIATE: None None ANESTHESIA TYPE: Local By Surgeon and General LMA/ETT Refer to Anesthesia Record ESTIMATED BLOOD LOSS: 5 PATHOLOGY: none sent TOURNIQUET TIME: 0 Patient was transported to: PACU Patient's condition: stable Indications: Please see complete medical record for details. Findings: Exam under anesthesia: Full range of motion, no instability Arthroscopic findings: Moderate suprapatellar, patellofemoral engaging, and anterior intercondylar synovitis. High-grade complex radial posterior horn tear with parrot-beak extension into the root. Largely intact articular cartilage. Intact ACL PCL. Intact lateral meniscus. Procedure Description: In the operating room, general anesthesia was induced. The patient was positioned supine on the operating room table. All bony prominences were well-padded. Preoperative antibiotics were administered. The knee was prepped and draped in the usual sterile fashion. The correct patient, procedure, and side of the procedure were all verified prior to incision. Exam under anesthesia was performed. 10 cc of 0.25% bupivacaine containing epinephrine was infiltrated about the planned anteromedial and anterolateral knee arthroscopy portals. The portals were established and a complete diagnostic arthroscopy was performed with relevant findings detailed above. The mechanical shaver was used to remove abundant and engaging synovium from the anteromedial, anterolateral, and patellofemoral compartments. The medial meniscus tear was inspected. Unfortunate was a high-grade radial tear in the posterior horn that extended into and near the root. A moderate amount of root tissue remained. There was no way realistically to complete a radial repair given the meniscus tissue quality, complex extension in different planes, and considering the patient factors like age and weight. Using a combination of hand instruments including meniscal biters and a power shaver and working through the anteromedial and anterolateral portals the meniscus was debrided of all torn tissue to a stable margin, which did progress toward the peripheral capsular margin radially and involved debriding the displaced parrot-beak tissue from the root leaving a more obvious defect between the edges of the posterior horn and root radially while nicely contouring the more horizontal and white to white-red zone tearing through the posterior horn towards the body. Care was taken to preserve as much meniscus tissue as reasonable. The posterior horn remnant was probed and stable to the capsule, detached from the root largely as described above given the radial tear, with the separate root remnant also now stable to its attachment. Under direct arthroscopic visualization an 18-gauge needle was passed into the knee from superolateral into the suprapatellar pouch. The knee was copiously irrigated with arthroscopic fluid until there was a clear effluent before being drained of all fluid. The anteromedial and anterolateral portals were closed in 3-0 Monocryl in a buried interrupted fashion. 20 cc of 0.25% bupivacaine with epinephrine containing 4 mg of morphine was infiltrated into the knee through the previously placed needle. Mastisol, Steri-Strips, and 4 x 4 gauze were applied over the incisions. The knee was then wrapped gently with an RASHARD comressive bandage. The patient awoke from anesthesia without complication and was transferred to the recovery room in a stable condition.
--- NOTE | 2024-05-07 07:29 | W.ANESPRE ---
General Info Date of Service Date Performed: 05/07/24 Height: 5 ft 7 in Weight: 94.801 kg Body Mass Index (BMI): 32.7 Surgical Procedure: Operation Date: 05/07/24 10:25 Proposed Procedure Side Surgeon p Knee Arthroscopy w/Partial Medial Meniscectomy Left Shahab Chavez MD Meds Allergies and Home Medications Allergies Allergy/AdvReac Type Severity Reaction Status Date / Time hydrocodone AdvReac Mild Nausea Verified 05/07/24 09:10 Home Medication Medication Instructions Recorded calcium carbonate (Calcium 600) 600 mg PO DAILY 07/07/14 multivitamin (Daily Multi-Vitamin 1 ea PO DAILY 07/07/14 tablet) omega-3 fatty acids-fish oil 300 1 ea PO DAILY 07/07/14 mg-1,000 mg capsule (Fish Oil) estradiol 0.01% (0.1 mg/gram) 0.25 g vaginal DAILY #42.5 grams 12/31/23 vaginal cream aspirin 81 mg capsule 81 mg PO DAILY prevent blood clot 05/07/24 14 days #14 caps naproxen 250 mg tablet 250 - 500 mg (1 - 2 x 250 mg) PO 05/07/24 BID PRN moderate pain and swelling #40 tabs tramadol 50 mg tablet 50 mg PO Q8H PRN severe pain #9 05/07/24 tabs Current Visit Medications: Current Medications Generic Name Dose Route Start Last Admin Trade Name Freq PRN Reason Stop Dose Admin Ringer's Solution 1,000 mls @ 30 mls/hr 05/07/24 06:00 IV 06/05/24 23:59 INFUSION PAULA Cefazolin Sodium/Dextrose 2 gm in 50 mls @ 100 mls/hr 05/07/24 06:00 Ancef Duplex IVPB 05/07/24 16:00 PREOP PAULA Tranexamic Acid/Sodium Chloride 1,000 mg in 100 mls @ 600 mls/hr 05/07/24 06:00 IVPB 05/07/24 16:00 PREOP PAULA IV Miscellaneous Supplies 1 each 05/07/24 06:00 Iv Access IV 06/05/24 23:59 DIRECTED PAULA Oxycodone HCl 0 mg 05/07/24 07:10 Oxycodone 5 Mg Tab PO 06/06/24 07:09 Q3H PRN PRN Pain Sodium Chloride 0 ml 05/07/24 06:00 Normal Saline Flush 10 Ml Syr IV 06/05/24 23:59 PRN PRN Sodium Chloride 0 ml 05/07/24 06:00 Normal Saline 10 Ml Vial IJ 06/05/24 23:59 DIRECTED PRN Sterile Water 0 ml 05/07/24 06:00 Water,Injection,Sterile 10 Ml Vial IJ 06/05/24 23:59 DIRECTED PRN PFSH Active Problems Active Problems: Problem Status Onset Code Tear of medial meniscus of left knee S83.242A Chondromalacia, right knee M94.261 Screen for colon cancer Z12.11 Medical History Medical History WALKER (stress urinary incontinence, female) Perimenopausal atrophic vaginitis Surgical History Surgical History History of colonoscopy (~05/2023) Tear of medial meniscus of right knee S/P a knee arthroscopy with partial medial meniscectomy: 05/03/2022 Ligation of fallopian tube section X 2 Open Carpal Tunnel release R Endometrial Ablation (~2007) Tobacco Smoking/Tobacco Use Status: Never Alcohol Alcohol Intake: current Alcohol intake frequency: a few times a week Alcohol type: hard liquor Substance Use Substance use: Never Substance use type: does not use Prental History History 2 Para Hx # Term Pregnancies 2 Multiple births Hx # Pregnancies Ectopic pregnancies AB induced Hx Number of Living Children AB spontaneous Vital Signs and Lab Results Vital Signs Most Recent Vital Signs in EMR: Temp Pulse Resp BP Pulse Ox 36.5 C 75 16 117/79 96 05/07/24 08:57 05/07/24 08:57 05/07/24 08:57 05/07/24 08:57 05/07/24 08:57 Lab Results Blood Type / Crossmatch: No Data to Display Complete Blood Count: No Data to Display Complete Metabolic Panel: No Data to Display Liver Function Panel: No Data to Display Coagulation Panel: No Data to Display Cardiac Panel: No Data to Display Arterial Blood Gas: No Data to Display Venous Blood Gas: No Data to Display Pancreas Panel: No Data to Display Thyroid Panel: No Data to Display Infectious Disease: No Data to Display Blood Cultures: No Data to Display Toxicology Panel: No Data to Display Panel: No Data to Display Anesthesia Assessment and Plan Anesthesia History Personal History: No History of Anesthesia Complications Family History: No Family History of Anesthesia Complications Exercise Tolerance Exercise Tolerance: Metabolic Equivalents>4 Cardiac & Pulmonary Exam Cardiac Exam: Normal S1/S2 Heart Sounds Pulmonary Exam: Clear Bilateral Breath Sounds Implantable Cardiac Device Does patient have a Pacemaker or an ICD?: No Airway Exam Known Difficult Airway: No Mallampati Class: 2 Mouth Opening: Normal (> 3cm) Thyromental Distance: Greater than 3 cm Neck Range of Motion: Full ROM Neck Circumference: Normal Teeth Condition: Normal Dentition ASA Classification ASA Score: ASA 2 Emergency Case?: No NPO Status NPO Status: NPO Clears >2 hours, Solids >8 hours Status Status: Not Relevant due to Medical History Anesthesia Plan Resuscitation Status: Full Code Anesthesia Technique: General Anesthesia Airway Planned: LMA Monitors Used: Standard Monitors Preoperative Comments:: 51 yo female for left knee scope. Sig PMHx: chronic neck/shoulder pain, never smoker, occ EtOH. Previous Anes: - colo, prop, natural airway, no issues. - knee scope, prop/dexmed, LMA 4, no issues. - ectr, prop/midaz, no issues.
[2024-05-07] MEDS: Lactated Ringers 1,000 ML 30 ML IV (09:31)
[2024-05-07] MEDS: ceFAZolin 2 GM/50 ML BAG IVPB (11:57)
[2024-05-07] MEDS: TRANEXAMIC ACID/SOD. CHL. 1,000 MG/100 ML BAG 600 MG IVPB (12:10)
[2024-05-07] MEDS: Bupivacaine 0.25% Pres-Free W/EPI 30 ML VIAL (12:26)
[2024-05-07] MEDS: MORPHine 4 MG/ML SYR (12:49)
[2024-05-07] MEDS: EPINEPHrine 10 MG/10 ML ML (12:50)
[2024-05-07] MEDS: Normal Saline 10 ML VIAL IJ (13:33)
[2024-05-07] MEDS: HYDROmorphone 2 MG/ML SYR IVP ×2 (13:33→13:46)
--- NOTE | 2024-05-07 14:03 | W.ANESPOSTOP ---
Postoperative Evaluation Date, Time and Location Date Performed: 05/07/24 Time Performed: 14:03 Patient Location: Day Surgery Unit Vital Signs Most Recent Imported Vital Signs: Most Recent Vital Signs Temp Pulse Resp BP Pulse Ox 36.6 C 63 17 117/64 96 05/07/24 13:55 05/07/24 13:55 05/07/24 13:55 05/07/24 13:55 05/07/24 13:55 Pain Score Most Recent Pain Score: Most Recent Pain Score Pain Level 3 05/07/24 13:50 Assessment Mental Status: Awake (Alert & Oriented to Patient Baseline) Airway and Respiratory Function: Patent airway with normal (patient baseline) respiratory exam Cardiovascular Function: Hemodynamically Stable Hydration Status: Adequately Hydrated Nausea & Vomiting: No Nausea or Vomiting Pain: Pain is tolerable per patient Peripheral Nerve Block: Patient did not receive a nerve block
== END 2024-05-07 15:42 | disposition home or self-care (01) ==
LOC: SUR 08:56
PROVIDERS: PCP Nurse Practitioner Family; Visit Provider Student in an Organized Health Care Education/Training Program
PROC: (CPT 29870; principal; 2024-05-07 10:15)
DX: S83.242A Other tear of medial meniscus, current injury, left knee, initial encounter (principal); X58.XXXA Exposure to other specified factors, initial encounter; M67.362 Transient synovitis, left knee
CPT/HCPCS: 29876; 29881; J0131; J0690; J1100; J1170; J1885; J2270; J2405; J2704; J3475

== ENCOUNTER 2025-02-02 16:00 | Outpatient (REF) | payer BC, SELFPAY ==
--- NOTE | 2025-02-02 15:50 | PAPFT_PTH ---
PATIENT: Regina Hearn LOC: [facility] U#:[id number] AGE/SX: 54/F ROOM: RE02/02/[address]: Renée Olivera MD : [id number] BED: DIS: 02/02/2025 SPEC #: [id number] RECD: 02/02/25 17:41 STATUS: AGUSTINA RECamron #: [id number] EDNA: 02/02/25 15:[address]: Renée Olivera DEPT: [facility] Cytology RECD BY: Damari Araujo ENTERED: 02/02/25 17:42 SP TYPE: PAPFT OTHR DR: Teena Flores, HUMA Tissues: 1 - CX/ENDOCX FOR PAP SMEARS Procedures: PAP THIN PREP/[facility] Screening HPV DNA PROBE Comments: [id number] (HPV 16 & 18/45)
== END 2025-02-02 16:01 | disposition home or self-care (01) ==
LOC: LBN 16:00
PROVIDERS: PCP Nurse Practitioner Family; Visit Provider Obstetrics & Gynecology
DX: Z01.419 Encounter for gynecological examination (general) (routine) without abnormal findings (principal)
CPT/HCPCS: 88142; 87624